=== PATIENT | male | born 1970 | race Caucasian/White ===

== ENCOUNTER → 2018-10-03 | Outpatient (CLI) | payer BC ==
[~2018-10-03] MED LIST: PROHANCE 279.3MG/ML 15ML VIAL (A9576) As Ordered ONE; PROHANCE 279.3MG/ML 5ML VIAL (A9576) As Ordered ONE
--- NOTE | 2018-10-04 08:16 | REP ---
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 Comparison study: No comparison study. Technique: Axial and sagittal imaging planes are utilized for T1 and T2-weighted scans. Sequences include spin-echo, fast spin echo, FLAIR, and diffusion weighted sequences. Gadolinium enhancement dose is 19 ml of intravenous ProHance. MRI findings: No bony calvarial lesion is seen. Craniocervical junction and upper cervical cord are normal in appearance. There is no MR evidence of significant paranasal sinus disease. No intraorbital abnormality is seen. The lateral, third, and fourth ventricles are normal in size and position. Sterling-white differentiation pattern is intact above and below the tentorium. There is no evidence of intracranial hemorrhage. No mass, infarction, extra-axial fluid collection or midline shift is seen. No abnormal white matter lesion is seen. No abnormal intracranial gadolinium enhancement. Impression: Negative brain MRI study. Electronically Signed by Zackary Knight MD 10/04/2018 08:07 A
== END ==
LOC: M RAD 16:19
PROVIDERS: ATTEND Ophthalmology
DX: H57.02 Anisocoria (principal)
CPT/HCPCS: 70553; A9576

== ENCOUNTER → 2020-08-11 | Outpatient (CLI) | payer SELFPAY | LOC: M LABSMTC 14:28 | PROVIDERS: ATTEND Pediatrics | DX: Z11.59 Encounter for screening for other viral diseases (principal) ==